=== PATIENT | female | born 1940 | race Caucasian/White ===

== ENCOUNTER 2022-07-06 09:54 | Observation (INO) | payer MEDICARE, OTHER ==
[~2022-07-06] VITALS: Ht 167.6 cm; Wt 55.9 kg
[~2022-07-06 09:54] MED LIST: FLAGYL500 MG PO; TYLENOL 500MG500 MG PO; WALKER MC
[2022-07-06 11:06] LABS: ALBUMIN 2.1 gm/dL (3.4-4.8); BILIRUBIN,TOTAL 0.5 mg/dL (0.2-1.2); CALCIUM 8.6 mg/dL (8.4-10.2); CREATININE, serum 0.64 mg/dL (0.57-1.11); POTASSIUM 3.7 mmol/L (3.5-4.5); TOTAL PROTEIN 6.5 gm/dL (6.2-8.1)
[2022-07-06 12:12] LABS: BASO # 0.1 K/mm3 (0.0-0.2); BASO % 0.3 % (0.0-2.0); EOS % 0.1 % (0.0-4.0); GRAN # 16.7 K/mm3 (1.4-6.5); GRAN % 87.4 % (42.2-75.2); HEMATOCRIT 27.3 % (37.0-47.0); HEMOGLOBIN 8.7 g/dl (12.5-16.0); LYMPH # 0.8 K/mm3 (1.2-3.4); LYMPH % 4.2 % (20.0-51.0); MEAN CELL VOLUME 83 fl (80.0-100.0); MEAN CORPUSCULAR HEMOGLOBIN 27 pg (27-31); MEAN CORPUSCULAR HGB CONC 32 g/dl (33.0-37.0); MONO # 1.4 K/mm3 (0.1-0.6); MONO % 7.1 % (1.7-9.3); PLATELET COUNT 381 K/mm3 (130-400); RED BLOOD COUNT 3.28 M/mm3 (4.10-5.30); REDCELL DISTRIBUTION WIDTH-CV 14.9 % (11.5-14.5)
[2022-07-06 17:02] VITALS: BP 122/54; PULSE 74; TEMP 98.1
--- NOTE | 2022-07-06 18:30 | NUR ---
PT IS LAYING IN BED, DENIES ANY PAIN OR COMPLAINTS AT THIS TIME. WILL RETURN FOR FULL ASSESSMENT
[2022-07-06 20:39] VITALS: BP 129/50; PULSE 76; TEMP 98.5
[2022-07-07 00:32] VITALS: BP 124/48; PULSE 77; TEMP 98.9
[2022-07-07 05:00] VITALS: BP 139/50; PULSE 81; TEMP 99.1
[2022-07-07 07:40] LABS: BASO # 0.1 K/mm3 (0.0-0.2); BASO % 0.3 % (0.0-2.0); EOS # 0.1 K/mm3 (0.0-0.7); EOS % 0.5 % (0.0-4.0); GRAN # 16.1 K/mm3 (1.4-6.5); GRAN % 86.4 % (42.2-75.2); LYMPH % 5.4 % (20.0-51.0); MEAN CELL VOLUME 84 fl (80.0-100.0); MEAN CORPUSCULAR HGB CONC 31 g/dl (33.0-37.0); MEAN PLATELET VOLUME 9.6 fl (7.4-10.4); MONO # 1.3 K/mm3 (0.1-0.6); MONO % 6.7 % (1.7-9.3); PLATELET COUNT 392 K/mm3 (130-400); RED BLOOD COUNT 3.23 M/mm3 (4.10-5.30); REDCELL DISTRIBUTION WIDTH-CV 14.9 % (11.5-14.5)
[2022-07-07 07:45] LABS: HEMATOCRIT 27.1 % (37.0-47.0); HEMOGLOBIN 8.5 g/dl (12.5-16.0); MEAN CORPUSCULAR HEMOGLOBIN 26 pg (27-31)
[2022-07-07 07:46] LABS: ALBUMIN 1.5 gm/dL (3.4-4.8); CALCIUM 7.7 mg/dL (8.4-10.2); CREATININE, serum 0.5 mg/dL (0.57-1.11); MAGNESIUM 1.8 mg/dL (1.6-2.6); PHOSPHOROUS 1.7 mg/dL (2.3-4.7); POTASSIUM 3.1 mmol/L (3.5-4.5)
[2022-07-07 10:22] VITALS: BP 142/45; PULSE 83
[2022-07-07 11:50] VITALS: BP 128/48; PULSE 70; TEMP 98.7
[2022-07-07 15:07] VITALS: BP 135/54; PULSE 81; TEMP 97.6
--- NOTE | 2022-07-07 15:34 | NUR ---
Marine Engineer contacted patient's DPOA-HC, Anat to discuss discharge planning. Patient was recently admitted here on 06/27/22-07/02/22 and went home with family and [facility]. 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 Anat advised they have had a visit from the tannery worker with [facility]. Patient's primary care physician is Dr. Doss and she most recently saw him yesterday, then was sent to the hospital. Patient requires assistance with ADLS and 21/05 supervision, which her family provides. Patient is scheduled for an Oncology follow up on Sunday, which may need to be rescheduled depending on how long she is hospitalized. Patient already has a hospital bed, grab bars, commode and tub transfer bench at home. DELVIS inquired about discharge plan and Anat advised as long as the rest of the family is still willing to continue, the plan will be for patient to return home with 24/ family support and [facility]. DELVIS contacted Avery at [facility] and faxed updates. DELVIS also contacted [facility] and they still have the walker available for patient when she discharges. Discharge Plan: Home with family support and [facility]
[2022-07-07] MEDS ORDERED: MEGACE 40MG40 MG/TAB PO (16:14)
[2022-07-07] MEDS ORDERED: OMNICEF 300MG300 MG PO (16:15)
--- NOTE | 2022-07-07 18:30 | NUR ---
pt had a calm day, vss, alert and orient x2, with confusion. pt denies all complaints, due medication given, iv cannula infiltrated RN unable to fix a an iv, dr. Power notified, said he will change pt meds to oral, doesnt a picc because she might be discharged tommorrow.
[2022-07-07 20:34] VITALS: BP 146/59; PULSE 81; TEMP 98
--- NOTE | 2022-07-07 23:22 | NUR ---
1830 - PATIENT IS LAYING IN BED WATCHING TELEVISION. PATIENT DENIES ANY NEEDS OR CONCERNS AT THIS TIME. PATIENT HAS CALL LIGHT WITHIN REACH. 2023 - PATIENT IS LAYING IN BED WATCHING TELEVISION. PATIENT IS ONLY ORIENTED TO SELF AND PRESIDENT. PATIENT DENIES NEEDS OR CONCERNS AT THIS TIME. PATIENT HAS CALL LIGHT WITHIN REACH AND IS ENCOUARGED TO CALL WITH ANY NEEDS. PATIENT STATES UNDERSTANDING.
[2022-07-08 00:37] VITALS: BP 131/57; PULSE 71; TEMP 97.9
[2022-07-08 05:03] VITALS: BP 142/51; PULSE 72; TEMP 97.8
--- NOTE | 2022-07-08 05:57 | NUR ---
PATIENT HAS HAD AN UNEVENTFUL NIGHT, RESTING IN BED WITH CALL LIGHT IN HAND. PATIENT DENIED PAIN, NEEDS OR CONCERN THIS SHIFT. PATIENT ENCOURAGED TO CALL WITH ANY NEEDS OR CONCERNS. PATIENT STATED UNDERSTANDING.
[2022-07-08 06:39] LABS: BASO % 0.2 % (0.0-2.0); EOS # 0.2 K/mm3 (0.0-0.7); GRAN # 14.5 K/mm3 (1.4-6.5); GRAN % 85.3 % (42.2-75.2); LYMPH # 1.1 K/mm3 (1.2-3.4); LYMPH % 6.2 % (20.0-51.0); MEAN CELL VOLUME 85 fl (80.0-100.0); MEAN CORPUSCULAR HGB CONC 31 g/dl (33.0-37.0); MEAN PLATELET VOLUME 9.2 fl (7.4-10.4); MONO # 1.1 K/mm3 (0.1-0.6); MONO % 6.6 % (1.7-9.3); PLATELET COUNT 439 K/mm3 (130-400); RED BLOOD COUNT 3.25 M/mm3 (4.10-5.30); REDCELL DISTRIBUTION WIDTH-CV 14.9 % (11.5-14.5)
[2022-07-08 06:55] VITALS: BP 132/53; PULSE 72; TEMP 97.8
[2022-07-08 07:04] LABS: ALBUMIN 1.5 gm/dL (3.4-4.8); CALCIUM 7.9 mg/dL (8.4-10.2); CREATININE, serum 0.5 mg/dL (0.57-1.11); MAGNESIUM 1.9 mg/dL (1.6-2.6); PHOSPHOROUS 2.1 mg/dL (2.3-4.7)
[2022-07-08 07:05] LABS: HEMATOCRIT 27.7 % (37.0-47.0); HEMOGLOBIN 8.7 g/dl (12.5-16.0); MEAN CORPUSCULAR HEMOGLOBIN 27 pg (27-31)
[2022-07-08 07:13] LABS: POTASSIUM 2.9 mmol/L (3.5-4.5)
[2022-07-08 08:00] VITALS: BP 132/53; PULSE 70; TEMP 98.7
--- NOTE | 2022-07-08 11:00 | NUR ---
PT HAD A CALM DAY, ALERT AND ORIENT X 2, DISORIENTATION, ALL DUE MEDICATION GIVEN ALL WELL TOLARATED. DENIES COMPLAINTS INCLUDING PAIN.PT AWAITING CHEST XRAY, POSSIBLE DISCHARGE TODAY.
[2022-07-08 11:11] VITALS: BP 125/45; PULSE 79; TEMP 98.1
[2022-07-08 15:23] VITALS: BP 122/62; PULSE 78; TEMP 98.3
[2022-07-08] MEDS ORDERED: DOXYCYCLINE 10100 MG PO (15:23)
[2022-07-08] MEDS ORDERED: KLOR-CON20 MEQ PO (15:27)
[2022-07-08] MEDS ORDERED: K-PHOS NEUTRAL250 M1 PO (15:27)
--- NOTE | 2022-07-08 16:40 | NUR ---
PT DISCHARGED FROM THE UNIT TO HOME. VS STABLE, ALERT AND ORIENT. TELE REMOVED, DISCHARGED SUMMARY AND INSTRUCTION GIVEN TO PT AND FAMILY, BOTH VERBALIZE UNDERSTANDING. MEDICATION CALLED IN TO [facility] PER PT/FAMILY REQUEST. COLOSTOMY BAGS PROVIDED. PT ESCORTED OUT OF THE UNIT BY THE TECH, PT IN WHEELCHAIR ACCOMPANIED HOME MY THE NEPHEW AND SISTER.
--- NOTE | 2022-07-10 16:00 | NUR ---
Wine Cellar Stock Clerk faxed discharge orders to Darlene ALDRICH.
[2022-07-24] MEDS ORDERED: LIDO35.4 TOP (13:53)
[2022-07-24] MEDS ORDERED: ZOFRAN ODT4 MG SL (14:54)
[2022-07-24] MEDS ORDERED: ULTRAM 50MG TAB50 MG PO (14:55)
[2022-07-24] MEDS ORDERED: DIAPERRASHOINT (14:56)
[2022-07-26] MEDS ORDERED: ROXANOL 20MG20 MG/ML PO ×2 (09:29)
[2022-07-26] MEDS ORDERED: ATIVAN 1MG T1 MG/TAB PO (09:29)
[2022-07-26] MEDS ORDERED: OMNICEF 300MG300 MG PO (09:31)
[2022-07-26] MEDS ORDERED: ROXANOL 20MG20 MG/ML SL (11:07)
== END 2022-07-08 16:40 | disposition home or self-care (01) ==
LOC: COL.ER 09:54 → MEDICAL 13:17
PROVIDERS: Family Medicine; ADMIT Internal Medicine
DX: R53.1 Weakness (principal); I95.9 Hypotension, unspecified; R65.10 Systemic inflammatory response syndrome (SIRS) of non-infectious origin without acute organ dysfunction; C20 Malignant neoplasm of rectum; U07.1 COVID-19; G93.41 Metabolic encephalopathy; E43 Unspecified severe protein-calorie malnutrition; Z93.3 Colostomy status
CPT/HCPCS: G0378; J0696; J1644; J3475; J7030